=== PATIENT | female | born 1950 | race Caucasian/White ===

== ENCOUNTER → 2017-07-02 | Outpatient (CLI) | payer MEDICARE ==
[~2017-07-02] MED LIST: ALTACE5 MG PO; ARIMIDEX1 MG PO; CYMBALTA PO; CYMBALTA60 MG PO; DEXILANT PO; ESTROGEN PO; KEFLEX500 MG PO; LEVSIN0.125 MG PO; LINZESS PO; LIPITOR20 MG PO; METOCLOPRAMIDE10 MG PO; MOM PO; MUCINEX D ER T1 EACH PO; MULTIVITAMINS PO; MULTIVITAMINS1 EAC8 PO; PANTOPRAZOLE SO40 MG PO; PRINIVIL; PROVENTIL HFA6.7 GM INH; VICODIN ES 7.51 EACH PO; VITAMIN D PO
--- NOTE | 2017-07-10 18:11 | Diagnostic Imaging Report ---
#[id number] - MGDXLT #UNILATERAL LEFT DIGITAL DIAGNOSTIC MAMMOGRAM WITH CAD: 07/02/2017 Comparison is made to exams dated: 11/26/2015 mammogram, 11/17/2014 mammogram and 02/06/2014 mammogram - [facility]. Current study contains 3 films. There are scattered fibroglandular elements in the left breast. Current study was also evaluated with a Computer Aided Detection (CAD) system. There are benign calcifications in the left breast that appear stable. No significant masses, calcifications, or other findings are seen in the breast. There has been no significant interval change. IMPRESSION: BENIGN There is no mammographic evidence of malignancy. A 1 year screening mammogram is recommended. The patient will be notified by letter of the results. Cuba Gomez Jr., D.O. cw/:07/09/2017 14:10:21 Environment Artist: Elizabeth VELIZ(Jules)(Eulalio), [facility] letter sent: Compared to Prior B9 Mammogram BI-RADS: 2 Benign
== END ==
LOC: MAMMO 10:21
PROVIDERS: ATTEND Internal Medicine
DX: N64.89 Other specified disorders of breast (principal)

== ENCOUNTER → 2017-12-24 | Outpatient (CLI) | payer MEDICARE ==
[~2017-12-24] MED LIST changes: +COMBIVENT RESPIM4 GM IH; +NAPROXEN250 MG PO; +TIZANIDINE HCL4 M1 PO; +VENTOLIN HFA18 GM INH
--- NOTE | 2017-12-24 15:26 | Diagnostic Imaging Report ---
EXAMINATION: PA and lateral views of the chest. COMPARISON: None CLINICAL HISTORY: Malignant neoplasm of breast DISCUSSION: Lines/tubes: None. Lungs: Lungs are well-inflated. Right lower lung opacity likely reflects compressive atelectasis. Patchy atelectatic changes in the left lower lung. Pleura: Right-sided pleural effusion. Heart and mediastinum: Mild enlargement of the cardiac silhouette . Pulmonary vasculature is normal. Bones and soft tissues: No acute bony abnormalities. Degenerative changes in the thoracic spine IMPRESSION: Right-sided pleural effusion with likely compressive atelectasis of the right lower lobe. Patchy atelectatic changes in the left lower lung. Signed by: Dr. Dutch Wilcox M.D. on 12/24/2017 3:22 PM
--- NOTE | 2017-12-24 19:15 | Diagnostic Imaging Report ---
Bone Scan, delayed phase INDICATION: 67 F with history of right breast cancer, s/p chemoXRT and right mastectomy in [id number]. Now with mid back pain, joint pain and left hip pain x 3 months. COMPARISON: Most recent prior bone scan 11/26/2015 REPORT: Approximately 3 hours following intravenous administration of 23 mCi of Tc-99m MDP, delayed total body images in the anterior and posterior projections and selected spot images were obtained. New foci of increased tracer activity in the skull bilateral, at multiple levels of the thoracolumbar spine, manubrium, sternal body on the left, bilateral SI joints left humeral head, bilateral intertrochanteric femurs and bilateral femoral shafts. Right breast prosthesis noted. No abnormal accumulation of tracer is seen in the soft tissues or urinary tract. IMPRESSION: New metastatic bone disease in the skull, spine, manubrium, sternum, pelvis, left humeral head and bilateral femurs. Signed by: Dr. Elizabeth Romero M.D. on 12/24/2017 7:12 PM
== END ==
LOC: NM 10:42
PROVIDERS: ATTEND Internal Medicine Medical Oncology
DX: C50.911 Malignant neoplasm of unspecified site of right female breast (principal); C77.3 Secondary and unspecified malignant neoplasm of axilla and upper limb lymph nodes; R94.5 Abnormal results of liver function studies; R97.0 Elevated carcinoembryonic antigen [CEA]
CPT/HCPCS: 71046; 78306; A9503